=== PATIENT | male | born 1935 | race Caucasian/White ===

== ENCOUNTER → 2020-04-26 | Outpatient (CLI) | payer MEDICARE, OTHER | END | disposition home or self-care (01) | LOC: LAB 12:24 → LAB SHORT 12:24 | PROVIDERS: Family Medicine | DX: Z12.5 Encounter for screening for malignant neoplasm of prostate (principal) | CPT/HCPCS: G0103 ==

== ENCOUNTER → 2021-05-17 | Outpatient (CLI) | payer MEDICARE, OTHER | END | disposition home or self-care (01) | LOC: LAB SHORT 12:47 → LAB 12:47 | DX: D18.01 Hemangioma of skin and subcutaneous tissue (principal) | CPT/HCPCS: 88305 ==

== ENCOUNTER 2023-04-30 08:57 | Emergency (ER) | payer MEDICARE, OTHER ==
[~2023-04-30] VITALS: Ht 175.3 cm; Wt 102.1 kg
[2023-04-30] MEDS ORDERED: Flomax0.4 MG PO (09:34)
[2023-04-30] MEDS ORDERED: FURO40 PO (09:34)
[2023-04-30] MEDS ORDERED: Prinivil10 MG PO (09:34)
[2023-04-30 09:35] LABS: BASOPHILS ABSOLUTE AUTO 0.06 K/mm3 (0.00-0.23); BASOPHILS PERCENT AUTO 1 % (0-2); EOSINOPHILS ABSOLUTE AUTO 0.03 K/mm3 (0.00-0.68); EOSINOPHILS PERCENT AUTO 0 % (0-6); Hematocrit 38.8 % (37.0-53.0); Hemoglobin 12.6 g/dL (13.5-17.5); IMMATURE GRAN ABSOLUTE AUTO 0.02 K/mm3 (0.00-0.10); IMMATURE GRAN PERCENT AUTO 0 % (0-1); LYMPHOCYTES ABSOLUTE AUTO 1.04 K/mm3 (0.84-5.20); LYMPHOCYTES PERCENT AUTO 14 % (21-46); MONOCYTES ABSOLUTE AUTO 0.47 K/mm3 (0.16-1.47); MONOCYTES PERCENT AUTO 6 % (4-13); Mean Corpuscular HGB 31.4 pg (26.0-34.0); Mean Corpuscular HGB Conc 32.5 g/dL (31.5-36.5); Mean Corpuscular Volume 97 fL (80-100); Mean Platelet Volume 10.5 fL (9.1-12.4); NEUTROPHILS ABSOLUTE AUTO 5.68 K/mm3 (1.96-9.15); NEUTROPHILS PERCENT AUTO 78 % (41-73); Platelet Count 195 K/mm3 (150-400); RDW Coefficient Variation 14.9 % (11.7-14.2); RDW Standard Deviation 53.2 fL (35.1-46.3); Red Blood Cell Count 4.01 M/mm3 (4.30-5.90)
[2023-04-30 10:05] LABS: D-Dimer, Quantitative 0.28 mg/L FEU (0.00-0.52); International Normalized Ratio 1.58; Prothrombin Time Results 16.2 Sec (9.7-11.5)
[2023-04-30 10:07] LABS: Albumin, Blood 3.5 g/dL (3.4-5.0); Albumin/Globulin Ratio 0.9 (0.8-1.8); Bilirubin, Total 2.6 mg/dL (0.1-1.0); Bun/Creatinine Ratio 30.2 (12.0-20.0); Calcium, Blood 9.1 mg/dL (8.5-10.1); Creatinine, Blood 1.72 mg/dL (0.60-1.20); Globulin, Blood 3.8 g/dL (2.2-4.0); Magnesium, Blood 2.4 mg/dL (1.6-2.4); Potassium, Blood 4.5 mmol/L (3.5-5.5); Total Protein, Blood 7.3 g/dL (6.4-8.2)
[2023-04-30 10:35] LABS: Influenza A, PCR NEGATIVE (NEGATIVE); Influenza B, PCR NEGATIVE (NEGATIVE); Resp Syncytial Virus, PCR NEGATIVE (NEGATIVE); SARS-Cov-2 (COVID-19) PCR, MMC NEGATIVE (NEGATIVE)
[2023-04-30 13:00] VITALS: BP 128/57
== END 2023-04-30 13:35 | disposition home or self-care (01) ==
LOC: ER 08:57
PROVIDERS: Emergency Medicine
DX: I50.9 Heart failure, unspecified (principal); Z20.822 Contact with and (suspected) exposure to COVID-19
CPT/HCPCS: 0241U; 71046; 80053; 83735; 84100; 84484; 85025; 85379; 85610; 85730; 93005; 93010; 93971; 96374; 99284-25; J1940

== ENCOUNTER 2023-05-18 18:51 | Inpatient (IN) | payer MEDICARE, OTHER ==
[~2023-05-18] VITALS: Ht 175.3 cm; Wt 106.3 kg
[~2023-05-18 18:51] MED LIST: FURO40 PO; Flomax0.4 MG PO; Prinivil10 MG PO
[2023-05-18 19:27] LABS: BASOPHILS ABSOLUTE AUTO 0.01 K/mm3 (0.00-0.23); BASOPHILS PERCENT AUTO 0 % (0-2); EOSINOPHILS PERCENT AUTO 0 % (0-6); Hemoglobin 14.8 g/dL (13.5-17.5); IMMATURE GRAN ABSOLUTE AUTO 0.08 K/mm3 (0.00-0.10); IMMATURE GRAN PERCENT AUTO 1 % (0-1); LYMPHOCYTES ABSOLUTE AUTO 0.44 K/mm3 (0.84-5.20); LYMPHOCYTES PERCENT AUTO 3 % (21-46); MONOCYTES ABSOLUTE AUTO 0.79 K/mm3 (0.16-1.47); MONOCYTES PERCENT AUTO 6 % (4-13); Mean Corpuscular HGB 32.4 pg (26.0-34.0); Mean Corpuscular HGB Conc 32.2 g/dL (31.5-36.5); Mean Corpuscular Volume 101 fL (80-100); Mean Platelet Volume 10.5 fL (9.1-12.4); NEUTROPHILS ABSOLUTE AUTO 13.07 K/mm3 (1.96-9.15); NEUTROPHILS PERCENT AUTO 91 % (41-73); Platelet Count 178 K/mm3 (150-400); RDW Coefficient Variation 19.1 % (11.7-14.2); RDW Standard Deviation 69.1 fL (35.1-46.3); Red Blood Cell Count 4.57 M/mm3 (4.30-5.90); White Blood Cell Count 14.39 K/mm3 (4.00-11.30)
[2023-05-18 19:45] LABS: Albumin, Blood 3.1 g/dL (3.4-5.0); Albumin/Globulin Ratio 0.9 (0.8-1.8); Bilirubin, Total 2.2 mg/dL (0.1-1.0); Bun/Creatinine Ratio 24.9 (12.0-20.0); Calcium, Blood 8.5 mg/dL (8.5-10.1); Creatinine, Blood 2.21 mg/dL (0.60-1.20); Globulin, Blood 3.6 g/dL (2.2-4.0); Potassium, Blood 5.8 mmol/L (3.5-5.5); Total Protein, Blood 6.7 g/dL (6.4-8.2)
[2023-05-19 01:48] VITALS: BP 116/49
[2023-05-19] MEDS ORDERED: POTCHL20ER PO (02:44)
[2023-05-19] MEDS ORDERED: XARELTO15 MG PO (02:45)
[2023-05-19 04:03] VITALS: BP 113/56
[2023-05-19] MEDS ORDERED: Prinivil10 MG PO (04:53)
[2023-05-19] MEDS ORDERED: HYDROCHLOROTH12.5 MG PO (04:53)
[2023-05-19 06:17] LABS: BASOPHILS ABSOLUTE AUTO 0.01 K/mm3 (0.00-0.23); BASOPHILS PERCENT AUTO 0 % (0-2); EOSINOPHILS PERCENT AUTO 0 % (0-6); Hematocrit 44.1 % (37.0-53.0); Hemoglobin 14.2 g/dL (13.5-17.5); IMMATURE GRAN ABSOLUTE AUTO 0.07 K/mm3 (0.00-0.10); IMMATURE GRAN PERCENT AUTO 1 % (0-1); LYMPHOCYTES ABSOLUTE AUTO 0.61 K/mm3 (0.84-5.20); LYMPHOCYTES PERCENT AUTO 5 % (21-46); MONOCYTES ABSOLUTE AUTO 0.68 K/mm3 (0.16-1.47); MONOCYTES PERCENT AUTO 5 % (4-13); Mean Corpuscular HGB 32.3 pg (26.0-34.0); Mean Corpuscular HGB Conc 32.2 g/dL (31.5-36.5); Mean Corpuscular Volume 100 fL (80-100); Mean Platelet Volume 10.3 fL (9.1-12.4); NEUTROPHILS ABSOLUTE AUTO 11.24 K/mm3 (1.96-9.15); NEUTROPHILS PERCENT AUTO 89 % (41-73); Platelet Count 164 K/mm3 (150-400); RDW Coefficient Variation 19.1 % (11.7-14.2); RDW Standard Deviation 69.2 fL (35.1-46.3); White Blood Cell Count 12.61 K/mm3 (4.00-11.30)
--- NOTE | 2023-05-19 06:44 | NUR ---
SHIFT SUMMARY PT ADMITTED TO UNIT. EXCORIATION NOTED ON BUTTOCKS, CREAM APPLIED, BLE BLISTERS D/T WEEPING EDEMA, NO WEEPING NOTICED, ADRYAN PLACED UNDER PTS LEGS INCASE WEEPING OCCURS. PT HAD NO ORDERS UPON ARRIVAL. CALLED DR. MONK ANSWERING SERVICE TO REQUEST ORDERS. ORDERS RECENTLY PLACED, AWAITING A TELE MONITOR TO PLACE ON PT. PT C/O ONE EPISODE FEELING SOB AND CHEST PRESSURE, OXYGEN AND ALL VITALS STABLE, SAT AND TALKED WITH PATIENT A DISTRACTION AND SOB AND CHEST PRESSURE ALLEVIATED. PT DOES AGREE THAT THIS MAY JUST BE ALL ANXIETY RELATED HE FEELS BETTER AFTER TALKING. DR. MONK NOTIFIED OF THIS, NO NEW ORDERS. FIRE SAFETY REVIEWED, NO IGNITION SOURCES.
[2023-05-19 06:55] LABS: Albumin, Blood 2.8 g/dL (3.4-5.0); Albumin/Globulin Ratio 0.8 (0.8-1.8); Bilirubin, Total 2.2 mg/dL (0.1-1.0); Bun/Creatinine Ratio 26.8 (12.0-20.0); Calcium, Blood 8.4 mg/dL (8.5-10.1); Creatinine, Blood 2.09 mg/dL (0.60-1.20); Globulin, Blood 3.4 g/dL (2.2-4.0); Potassium, Blood 5.8 mmol/L (3.5-5.5); Total Protein, Blood 6.2 g/dL (6.4-8.2)
[2023-05-19 07:10] VITALS: BP 120/56
[2023-05-19 15:24] VITALS: BP 97/79
--- NOTE | 2023-05-19 17:50 | NUR ---
SHIFT SUMMARY- PTIS A/O, PLESANT AND COOPERATIVE. HE IS EATING AND DRINKING WELL. FAMILY WAS AT BEDSIDE THIS MORNING AND THIS EVENING. PTS DAUGHTER BECAME UPSET THIS MORNING THAT PT HAD NOT RECIEVED A BEDBATH YET. PT EXPLAINED TO THE DAUGHTER THAT HE WAS GOING TO HAVE ONE AFTER LUNCH HE DISCUSSED WITH THE PHARMACIST IN CHARGE. THE PHARMACIST IN CHARGE ENTERED THE ROOM TO DISCUSS THIS WITH THE DAUGHTER AND SHE ELEVATED HER VOICE AND TOLD THE PHARMACIST IN CHARGE TO LEAVE THE ROOM. AFTER THIS THE PHARMACIST IN CHARGE WAS SITTING AT HER DESK AND THE PTS DAUGHER CAME OUT STOOD OVER THE PHARMACIST IN CHARGE AND POINTED A FINGER AT HER AND BEGAN TO SHOUT. I ASKED HER TO RETURN TO THE ROOM TO DISCUSS THIS. I EXPLAINED THAT I KNOW SHE IS WORRIED ABOUT HER FATHER BUT IT IS UNACCEPTABLE TO TALK TO STAFF IN THIS WAY. PT REQUESTED THAT HIS DAUGHTER LEAVE AT THIS TIME. LATER I SPOKE TO DR. MONK AND SHE SAID SHE WOULD REINFORCE THIS WHEN SHE SPOKE TO THE DAUGHTER ON THE PHONE. THIS AFTERNOON PT REPORTED HAVING INCREASED SHORTNESS OF BREATH. HE REPORTED THAT IT WAS THE SAME FEELING HE HAD BEFORE HE CAME TO THE HOSPITAL, BUT THE EPISODE WAS LASTING LONGER. PT O2 SATS MAINTAINED IN THE HIGH 90'S, PLACED PT ON 2L FOR COMFORT. PREFORMED A BLADDER SCAN ON THE PT, DUE TO MINIMAL OUTPUT THIS AFTERNOON, WHICH SHOWED NO RETENTION >20ML. SPOKE TO DR MONK. SHE ORDERED ANOTHER DOSE OF IV LASIX. PT REPORTED RELIEF OF SYMPTOMS. PT RECIEVED A BEDBATH THIS SHIFT. HE REPORTED SORENESS IN HIS BOTTOM, MEPLEX REPLACED, EGGCRATE PLACED ON BED. HIS BED IS IN THE LOW POSITON AND CALL LIGHT IS WITIN REACH.
[2023-05-19 18:14] LABS: Bun/Creatinine Ratio 29.7 (12.0-20.0); Calcium, Blood 8.7 mg/dL (8.5-10.1); Creatinine, Blood 2.19 mg/dL (0.60-1.20)
[2023-05-19 19:39] VITALS: BP 114/56
[2023-05-19 21:52] LABS: Albumin, Blood 2.9 g/dL (3.4-5.0); Anion Gap 6 mmol/L (6-16); Blood Urea Nitrogen 66 mg/dL (8-24); Bun/Creatinine Ratio 29.7 (12.0-20.0); CO2, Blood 23 mmol/L (21-32); Calcium, Blood 8.6 mg/dL (8.5-10.1); Chloride, Blood 100 mmol/L (98-108); Creatinine, Blood 2.22 mg/dL (0.60-1.20); Glomerular Filtration Rate 28 (60-); Glucose, Blood 182 mg/dL (70-99); Phosphorus, Blood 4.6 mg/dL (2.5-4.9); Potassium, Blood 5.9 mmol/L (3.5-5.5); Sodium, Blood 129 mmol/L (136-145)
[2023-05-19 23:51] LABS: Bun/Creatinine Ratio 32.7 (12.0-20.0); Calcium, Blood 8.5 mg/dL (8.5-10.1); Creatinine, Blood 2.05 mg/dL (0.60-1.20); Potassium, Blood 6.3 mmol/L (3.5-5.5)
[2023-05-20 02:53] LABS: BASOPHILS ABSOLUTE AUTO 0.01 K/mm3 (0.00-0.23); BASOPHILS PERCENT AUTO 0 % (0-2); EOSINOPHILS ABSOLUTE AUTO 0.02 K/mm3 (0.00-0.68); EOSINOPHILS PERCENT AUTO 0 % (0-6); Hematocrit 41.4 % (37.0-53.0); Hemoglobin 13.5 g/dL (13.5-17.5); IMMATURE GRAN ABSOLUTE AUTO 0.05 K/mm3 (0.00-0.10); IMMATURE GRAN PERCENT AUTO 1 % (0-1); LYMPHOCYTES ABSOLUTE AUTO 0.46 K/mm3 (0.84-5.20); LYMPHOCYTES PERCENT AUTO 4 % (21-46); MONOCYTES ABSOLUTE AUTO 0.72 K/mm3 (0.16-1.47); MONOCYTES PERCENT AUTO 7 % (4-13); Mean Corpuscular HGB 32.3 pg (26.0-34.0); Mean Corpuscular HGB Conc 32.6 g/dL (31.5-36.5); Mean Corpuscular Volume 99 fL (80-100); Mean Platelet Volume 9.9 fL (9.1-12.4); NEUTROPHILS ABSOLUTE AUTO 9.62 K/mm3 (1.96-9.15); NEUTROPHILS PERCENT AUTO 88 % (41-73); Platelet Count 143 K/mm3 (150-400); RDW Coefficient Variation 18.9 % (11.7-14.2); RDW Standard Deviation 67.4 fL (35.1-46.3); Red Blood Cell Count 4.18 M/mm3 (4.30-5.90); White Blood Cell Count 10.88 K/mm3 (4.00-11.30)
[2023-05-20 03:12] LABS: Albumin, Blood 2.5 g/dL (3.4-5.0); Albumin/Globulin Ratio 0.8 (0.8-1.8); Bilirubin, Total 1.7 mg/dL (0.1-1.0); Bun/Creatinine Ratio 29.4 (12.0-20.0); Calcium, Blood 8.1 mg/dL (8.5-10.1); Creatinine, Blood 2.14 mg/dL (0.60-1.20); Magnesium, Blood 2.8 mg/dL (1.6-2.4); Phosphorus, Blood 4.4 mg/dL (2.5-4.9); Potassium, Blood 4.8 mmol/L (3.5-5.5); Total Protein, Blood 5.5 g/dL (6.4-8.2)
[2023-05-20 04:27] VITALS: BP 109/62
--- NOTE | 2023-05-20 04:59 | NUR ---
SHIFT SUMMARY ADMIT FOR CHF EXACERBATION. PT HAS 3+ PITTING EDEMA IN BLE. PT ON BEDREST. CONSISTENT IN AFIB THROUGHOUT NIGHT AT 81BPM. PT EXPERIENCED PERIODS OF SHORTNESS OF BREATH PERIODICALLY THROUGH NIGHT. 3L NC O2 PROVIDED. REMINDED PT TO BREATH THROUGH NOSE. AWAITING TRANSFER TO [place]. EKG PERFORMED AT START OF SHIFT. FINDINGS WERE UNREMARKABLE. K+ @1747:6.0 (CRITICAL CALLED), GLU:154; K+ @2101:5.9, GLU:182 (ANDREW ORDERED HEMO A1C IN AM, ACHS LSS W/REG INSUL SUBQ, LOKELMA, STAT 2MG BUMEX, THEN BLADDER SCAN [444, THEN 357 AFTER VOIDING]); K+ @2304:6.3 (CRITICAL CALLED), GLU:145 (ANDREW ORDERED 2MG BUMEX, 1AMP D50, 1AMP BICARB, 10 UNITS IV INSULIN, 1 LITRE/DAY FLUID RESTRICTION); K+ @0243:4.8 (ANDREW CALLED), GLU:62 (APPLEJUICE GIVEN). BLADDER SCANNED @0445:228. IV HAD TO BE REPLACED DUE TO LEAKING.
[2023-05-20 07:16] VITALS: BP 115/54
[2023-05-20 15:46] VITALS: BP 124/54
--- NOTE | 2023-05-20 18:20 | NUR ---
SUMMARY- PT A/O X4. STARTED PT/OT TODAY AND GOT UP TO CHAIR WITH GAIT BELT AND WALKER. RN GOT PT BACK TO BED SBA WITH ADQ STRENGTH, GEN WEAKNESS- TOLAEATING FOOD AND FLUID. ON DIURETICS BUT VOIDING MIN AMOUNTS (SEE I/O)- CONTINUES TO HAVE SEVERE EDEMA BLE (WEAPING)- LUNGS WITH CRACKLES IN BASES. ROOM AIR. TELE AFIB 80'S. DOING 24HR UUN STARTED 829- WILL REPORT TO NOC RN
[2023-05-20 20:29] VITALS: BP 103/53
[2023-05-21 01:30] VITALS: BP 111/59
--- NOTE | 2023-05-21 03:55 | NUR ---
DSHIFT SUMMARY ADMIT FOR CHF EXACERBATION. 3+ PITTING EDEMA STILL PRESENT IN BLE. WEAPING FLUID FROM BOTH, BUT WORSE ON LEFT. APPLIED CHUCKS TO BLE, THEN APPLIED SCD'S TO AID IN DIURESING. PT ABLE TO VOID WELL WITH URINAL. UNDER 24HOUR URINE COLLECTION. BEGAN ANEW AT 2053 DUE TO ACCIDENTAL WASTING OF 400ML OF VOIDED URINE. PT HAD MOMENT OF SHORTNESS OF BREATH DURING EPISODE OF ANXIETY. EDUCATED PT ON PROPER BREATHING TECHNIQUES. APPLIED 3LPM NC O2. CHECKED VITALS AT 0130 BP 111/59 MAP (75). HR 89BPM. TEMP 97.2F. O2 100%. ADJUSTED PT IN BED, SAT UP, AND PT ABLE TO RELAX AND BREATH WELL. SLIGHT CRACKLES IN LUNG BASES. HEART MURMER HEARD. PT AWAITING ATRIAL VALVE REPLACEMENT ON 06/01.
[2023-05-21 05:03] LABS: Hematocrit 41.6 % (37.0-53.0); Hemoglobin 13.6 g/dL (13.5-17.5); Mean Corpuscular HGB 32.1 pg (26.0-34.0); Mean Corpuscular HGB Conc 32.7 g/dL (31.5-36.5); Mean Corpuscular Volume 98 fL (80-100); Mean Platelet Volume 10.6 fL (9.1-12.4); Platelet Count 159 K/mm3 (150-400); RDW Coefficient Variation 18.6 % (11.7-14.2); RDW Standard Deviation 65.9 fL (35.1-46.3); Red Blood Cell Count 4.24 M/mm3 (4.30-5.90); White Blood Cell Count 9.85 K/mm3 (4.00-11.30)
[2023-05-21 05:17] VITALS: BP 99/54
[2023-05-21 05:33] LABS: BASOPHILS PERCENT MAN 0 % (0-2); EOSINOPHILS PERCENT MAN 0 % (0-6); LYMPHOCYTES ABSOLUTE MAN 0.68 K/mm3 (0.84-5.20); LYMPHOCYTES PERCENT MAN 7 % (21-46); MONOCYTES ABSOLUTE MAN 0.39 K/mm3 (0.16-1.47); MONOCYTES PERCENT MAN 4 % (4-13); NEUTROPHILS ABSOLUTE MAN 8.76 K/mm3 (1.96-9.15); SEG NEUTROPHILS PERCENT MAN 89 % (41-73); TOTAL CELLS COUNTED 100
[2023-05-21 05:34] LABS: Albumin, Blood 2.6 g/dL (3.4-5.0); Albumin/Globulin Ratio 0.8 (0.8-1.8); Bilirubin, Total 1.5 mg/dL (0.1-1.0); Bun/Creatinine Ratio 33.7 (12.0-20.0); Calcium, Blood 8.1 mg/dL (8.5-10.1); Creatinine, Blood 1.96 mg/dL (0.60-1.20); Globulin, Blood 3.1 g/dL (2.2-4.0); Magnesium, Blood 2.4 mg/dL (1.6-2.4); Phosphorus, Blood 4.1 mg/dL (2.5-4.9); Potassium, Blood 3.7 mmol/L (3.5-5.5); Total Protein, Blood 5.7 g/dL (6.4-8.2); Uric Acid, Blood 14.8 mg/dL (3.5-7.2)
[2023-05-21 07:19] VITALS: BP 127/52
[2023-05-21 15:42] VITALS: BP 111/56
--- NOTE | 2023-05-21 18:51 | NUR ---
SHIFT SUMMARY: PT A/O X 4, ONE ASSIST WITH FWW, GB. PLEASANT AND COOPERATIVE. PT TOLERATING INCREASED BUMEX. TELE REPORTED PT HAD ONE 9 BEAT RUN OF V-TACH TODAY WHEN PT WAS TRANSFERRING FROM CHAIR TO BED. PT ASYMPTOMATIC AT TIME OF EVENT. PT CONTINUED TO HAVE EDEMA TO BLE WITH SOME WEEPING AT ANKLES. PT REPORTED TO FEEL STRONGER THAN YESTERDAY. CONTINUES TO URINATE AND 24 HOUR URINE COLLECTION TO BE COMPLETED TONIGHT AT 2053. PT DID REPORT ANXIETY THIS EVENING WHICH HE STATED "MY DAUGHTER'S VISIT IS JUST GOT ME SO UPSET AND I HAVE TRIED FOR AN HOUR TO CALM DOWN AND I CAN'T." PT REPORTED "I CAN'T CATCH MY BREATH. DR. MONK NOTIFIED OF PT REPORT OF ANXIETY AND SHE GAVE ORDER FOR LORAZEPAM 0.5 MG-1 MG ONE TIME. GIVE 0.5 MG NOW AND IF NEEDED GIVE 2ND DOSE. PT IS NOW RESTING IN HIS ROOM, EYES SHUT RR E/U, APPEARS TO BE SLEEPING AND IN NO APPARENT DISTRESS. DR. MONK AWARE OF EPISODE OF V-TACH.
[2023-05-21 21:25] VITALS: BP 115/56
[2023-05-21 23:32] LABS: Protein, Urine Quantitative 11.7 mg/dL (0.0-11.9)
[2023-05-22 05:15] VITALS: BP 115/56
[2023-05-22 06:45] LABS: BASOPHILS PERCENT AUTO 0 % (0-2); EOSINOPHILS ABSOLUTE AUTO 0.05 K/mm3 (0.00-0.68); EOSINOPHILS PERCENT AUTO 1 % (0-6); Hematocrit 42.3 % (37.0-53.0); Hemoglobin 13.8 g/dL (13.5-17.5); IMMATURE GRAN ABSOLUTE AUTO 0.03 K/mm3 (0.00-0.10); IMMATURE GRAN PERCENT AUTO 0 % (0-1); LYMPHOCYTES ABSOLUTE AUTO 0.64 K/mm3 (0.84-5.20); LYMPHOCYTES PERCENT AUTO 7 % (21-46); MONOCYTES ABSOLUTE AUTO 0.52 K/mm3 (0.16-1.47); MONOCYTES PERCENT AUTO 6 % (4-13); Mean Corpuscular HGB 32.4 pg (26.0-34.0); Mean Corpuscular HGB Conc 32.6 g/dL (31.5-36.5); Mean Corpuscular Volume 99 fL (80-100); Mean Platelet Volume 10.5 fL (9.1-12.4); NEUTROPHILS ABSOLUTE AUTO 7.52 K/mm3 (1.96-9.15); NEUTROPHILS PERCENT AUTO 86 % (41-73); Platelet Count 135 K/mm3 (150-400); RDW Coefficient Variation 18.8 % (11.7-14.2); RDW Standard Deviation 67.5 fL (35.1-46.3); Red Blood Cell Count 4.26 M/mm3 (4.30-5.90); White Blood Cell Count 8.76 K/mm3 (4.00-11.30)
[2023-05-22 07:01] LABS: Albumin, Blood 2.5 g/dL (3.4-5.0); Albumin/Globulin Ratio 0.8 (0.8-1.8); Bilirubin, Total 1.5 mg/dL (0.1-1.0); Bun/Creatinine Ratio 36.2 (12.0-20.0); Calcium, Blood 8.3 mg/dL (8.5-10.1); Creatinine, Blood 1.74 mg/dL (0.60-1.20); Globulin, Blood 3.2 g/dL (2.2-4.0); Magnesium, Blood 2.3 mg/dL (1.6-2.4); Phosphorus, Blood 4.1 mg/dL (2.5-4.9); Potassium, Blood 3.4 mmol/L (3.5-5.5); Total Protein, Blood 5.7 g/dL (6.4-8.2)
[2023-05-22 07:32] VITALS: BP 122/57
--- NOTE | 2023-05-22 11:50 | NUR ---
PT INCONTINENT OF URINE AT THIS TIME. PLACED CONDOM CATH WITH PT VERBAL CONSENT FOR STRICT I&O'S ORDER. PLACED PER POLICY AND PT TOLERATED WELL.
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
[2023-05-22 16:23] VITALS: BP 106/42
--- NOTE | 2023-05-22 17:10 | NUR ---
SHIFT SUMMARY: PT A/O X 4, ONE ASSIST TO BATHROOM. PT WAS LETHARGIC THIS AM AND DIFFICULT TO KEEP AWAKE. AROUND 11 AM PT BECAME MORE ALERT AND ABLE TO KEEP EYES OPEN AND CARRY ON A CONVERSATION. PT HAS BEEN PLEASANT AND COOPERATIVE WITH CARE. PT WAS INCONTINENT THROUGH THE NIGHT AND THIS MORNING. DR. MORALES REQUESTED STRICT I&O'S. PLACED A CONDOM CATHETER BUT AT SOME POINT CATHETER WAS PULLED OFF. PT REPORTED HE DID NOT KNOW HE PULLED IT OFF THINKING IT WAS HIS CALL LIGHT CORD HE WAS PULLING. UNABLE TO MEASURE URINE DUE TO THIS HE HAD SOAKED HIS ATTENDS. REPLACED CONDOM CATHETER AND EDUCATED PT ON IMPORTANCE OF MAINTAINING CONDOM CATHETER. PT VU. CALL LIGHT OVER PT LAP NOW. PT SWELLING TO LEGS APPEAR IMPROVED. LESS WEEPING TODAY THAN YESTERDAY. ONLY A FEW WET SMALL SPOTS ON CHUX THIS AFTERNOON WHEN THEY WERE CHANGED. PT KEPT LEGS ELEVATED THROUGHOUT THE DAY. PT REFUSED OT DUE TO FEELING TO WEAK TO WORK WITH THEM. PT HAD VISIT WITH SPIRITUAL CARE TODAY. PT DID NOT TALK EXCESSIVELY ABOUT HIS DAUGHTER'S VISIT YESTERDAY WHICH HE WAS UPSET BY LAST NIGHT. PT APPEARED TO BE IN GOOD SPIRITS WHEN HE WAS AWAKE. EATING WELL WHEN AWAKE AND COMPLIANT WITH FLUID RESTRICTION. RANDOM UA SENT TO LAB.
[2023-05-22 20:15] VITALS: BP 103/45
--- NOTE | 2023-05-22 22:50 | NUR ---
PATIENT HAVING INCREASED EPISODES OF V-TACH SINCE THIS NURSE ARRIVAL TELEMETRY HAS CALLED [address] ROSAS NOTIFIED AND WILL REVIEW THE CHART AND PLACE ORDERS IF NEEDED. PATIENT IS ASYMPTOMATIC WITH EPISODES.
[2023-05-23 00:15] VITALS: BP 100/66
[2023-05-23 03:25] VITALS: BP 93/49
--- NOTE | 2023-05-23 03:43 | NUR ---
PATIENT A/OX4, UP WITH ASSIST AND FWW. TURING Q2 HOURS IN BED, EXCORIATION TO BUTTOCKS, BARRIER CREAM APPLIED. A-FIB ON TELE WITH MULTIPLE RUNS OF V-TACH AT START OF SHIFT. DR. ROSAS NOTIFIED AND METOPROLOL 12.5 MG GIVEN PO WHICH SEEMS TO HAVE HELPED. 3+ EDEMA TO BLE, PATIENT IS ON A 1L FLUID RESTRICTION AND IS COMPLIANT WITH THIS. DRESSINGS TO BLE REMAIN C/D/I, SCD'S IN PLACE AND LEGS ELEVATED. PATIENT ANXIOUS AT TIMES, FEELS BETTER AND LESS SHORT OF BREATH WITH O2 USE. 2LO2 IN PLACE FOR COMFORT. CONDOM CATH IN PLACE FOR STRICT I/O'S. PATIENT IS COOPERATIVE WITH CARE AND CALLS APPROPRIATELY FOR ASSISTANCE.
[2023-05-23 05:12] LABS: Hematocrit 40.8 % (37.0-53.0); Hemoglobin 13.3 g/dL (13.5-17.5)
[2023-05-23 06:26] LABS: Albumin, Blood 2.7 g/dL (3.4-5.0); Anion Gap 9 mmol/L (6-16); Blood Urea Nitrogen 63 mg/dL (8-24); Bun/Creatinine Ratio 34.8 (12.0-20.0); CO2, Blood 25 mmol/L (21-32); Calcium, Blood 8.2 mg/dL (8.5-10.1); Chloride, Blood 104 mmol/L (98-108); Creatinine, Blood 1.81 mg/dL (0.60-1.20); Glomerular Filtration Rate 36 (60-); Glucose, Blood 163 mg/dL (70-99); Magnesium, Blood 2.2 mg/dL (1.6-2.4); Potassium, Blood 3.6 mmol/L (3.5-5.5); Sodium, Blood 138 mmol/L (136-145)
[2023-05-23 07:57] VITALS: BP 104/44
--- NOTE | 2023-05-23 14:12 | NUR ---
Pt with 200 ml albert urine per condom cath, brief dry. Telephone orders from Dr. Castellanos for Lasix 80 mg IV BID. DC po Lasix.
[2023-05-23 15:21] VITALS: BP 91/43
--- NOTE | 2023-05-23 15:54 | NUR ---
SHIFT SUMMARY Pt remains awake and alert x4 this shift. Up in chair for meals. OOB with 1 person ast and fww. To bathroom today for large BM. Generalized edema +2-3/ Minimal weeping from BLE. SCDs in place while in bed. Ext elevated. Unable to keep condom cath on as they fall off with activity. Pt compliant with fluid restrictions. Pain and safety maintained. Will continue to monitor this shift.
--- NOTE | 2023-05-23 18:22 | NUR ---
Call from tele stating pt with 5 beat run of vtach. Pt asymptomatic. Dr. Ayala made aware. Will continue to monitor.
[2023-05-23 20:57] VITALS: BP 92/49
--- NOTE | 2023-05-23 23:08 | NUR ---
NURSE NOTE BP LOW NORMAL, OTHERWISE VSS. SOME C/O SOB, REPOSITIONED A FEW TIMES AND RT DID BEDSIDE EVAL. VOICED SATS WNL (WAS 100% WHEN NURSE CHECKED THEM). NURSE ASSISTED PT INTO BEDSIDE LOUNGE CHAIR WITH O2 ON 2-3L/MIN PER NC. AFTERWARDS PT VOICED FELT BETTER. CALL LIGHT IN REACH. WILL CONT TO MONITOR
--- NOTE | 2023-05-24 03:33 | NUR ---
DRILL INSTRUCTOR SUMMARY BP LOW NORMAL, OTHERWISE VSS. LOPRESSOR WAS HELD DUE TO SBP BELOW 100. O2 PER NC. HOB ELEVATED. INTERMITTENT VOICED SOB, RT ASSESSED PT, SATS 90'S TO 100%. WAS ASSISTED TO BEDSIDE LOUNGE CHAIR FOR EASIER BREATHING, IT HELPED FOR A WHILE, THEN REQUESTED TO GO BACK TO BED. INCONT OF URINE AND CHANGED. HAS BEEN RESTING QUIETLY WITH OCCASIONAL INTERRUPTION. MED TELE A FIB. FLUID RESTRICTION CONTINUES. CALL LIGHT IN REACH. WILL CONTINUE TO MONITOR.
[2023-05-24 03:37] VITALS: BP 93/40
[2023-05-24 04:59] LABS: Hematocrit 43.2 % (37.0-53.0); Hemoglobin 14.1 g/dL (13.5-17.5)
[2023-05-24 05:40] LABS: Albumin, Blood 2.9 g/dL (3.4-5.0); Anion Gap 8 mmol/L (6-16); Blood Urea Nitrogen 77 mg/dL (8-24); Bun/Creatinine Ratio 31.6 (12.0-20.0); CO2, Blood 25 mmol/L (21-32); Calcium, Blood 8.4 mg/dL (8.5-10.1); Chloride, Blood 102 mmol/L (98-108); Creatinine, Blood 2.44 mg/dL (0.60-1.20); Glomerular Filtration Rate 25 (60-); Glucose, Blood 159 mg/dL (70-99); Magnesium, Blood 2.5 mg/dL (1.6-2.4); Phosphorus, Blood 5.1 mg/dL (2.5-4.9); Sodium, Blood 135 mmol/L (136-145)
[2023-05-24 07:29] VITALS: BP 104/42
--- NOTE | 2023-05-24 15:55 | NUR ---
SHIFT SUMMARY Pt remains A&Ox3 this shift. Denies pain. VSS. Exertional dyspnea, wearing oxygen more frequently now. Up in chair for meals today. Short naps during this shift. BLE elevated. Will continue to monitor this shift.
[2023-05-24 16:00] VITALS: BP 91/49
[2023-05-24 19:35] VITALS: BP 99/52
[2023-05-25] VITALS (92 sets, daily range): BP systolic 74–124; BP diastolic 13–84
--- NOTE | 2023-05-25 | NUR ---
NURSE NOTE AWKAE AT INTERVALS. INTERMITTENTLY CALLING OUT TO BE TURNED, ETC. VOICED DIFFICULTY TO BREATHE. REPOSITIONED, HOB ELEVATED AND O2 PLACED BACK ON PER NC. O2 SATS 98%. HR 72. REASURRANCE GIVEN. ANXIETY SEEMED TO DECREASE. CALL LIGHT IN REACH. WILL CONTINUE TO MONITOR
--- NOTE | 2023-05-25 03:33 | NUR ---
SEWER SYSTEM SUPERVISOR SUMMARY VSS. BP WAS LOW AND BP MED HELD AT HS, HAS TRENDED UP TO LOW NORMAL - SEE DOC FLOW SHEETS. TOLERATING LITTLE DIET - REQUESTED AND RECEIVED ICE CREAM, REFUSED OTHER SUGGESTIONS. ALERT TO QUESTIONS ASKED. REPOSITIONED INTERMITTENTLY WITH HOB ELEVATED. O2 PER NC. A FEW VOICED IRRITATIONS RE WANTING TO GET OUT OF BED TO CHAIR, THEN WANTING TO GET BACK INTO BED. RECEIVED HALDOL X 1 FOR AGITATION. BEDREST ENCOURAGED. CALL LIGHT IN REACH. SCDS IN USE. CALL LIGHT IN REACH.
[2023-05-25 04:20] LABS: BASOPHILS ABSOLUTE AUTO 0.01 K/mm3 (0.00-0.23); BASOPHILS PERCENT AUTO 0 % (0-2); EOSINOPHILS PERCENT AUTO 0 % (0-6); Hematocrit 46.1 % (37.0-53.0); Hemoglobin 14.5 g/dL (13.5-17.5); IMMATURE GRAN ABSOLUTE AUTO 0.11 K/mm3 (0.00-0.10); IMMATURE GRAN PERCENT AUTO 1 % (0-1); LYMPHOCYTES ABSOLUTE AUTO 1.19 K/mm3 (0.84-5.20); LYMPHOCYTES PERCENT AUTO 12 % (21-46); MONOCYTES ABSOLUTE AUTO 0.67 K/mm3 (0.16-1.47); MONOCYTES PERCENT AUTO 7 % (4-13); Mean Corpuscular HGB Conc 31.5 g/dL (31.5-36.5); Mean Corpuscular Volume 102 fL (80-100); Mean Platelet Volume 10.8 fL (9.1-12.4); NEUTROPHILS ABSOLUTE AUTO 8.19 K/mm3 (1.96-9.15); NEUTROPHILS PERCENT AUTO 81 % (41-73); Platelet Count 118 K/mm3 (150-400); RDW Coefficient Variation 18.1 % (11.7-14.2); RDW Standard Deviation 67.8 fL (35.1-46.3); Red Blood Cell Count 4.53 M/mm3 (4.30-5.90); White Blood Cell Count 10.17 K/mm3 (4.00-11.30)
--- NOTE | 2023-05-25 04:23 | NUR ---
NURSE NOTE - CODE WHILE IN LOUNGE CHAIR AT BEDSIDE, CALL LIGHT IN REACH. VOICED WANTING TO GET BACK TO BED. REFUSED WARM BLANKETS. CALLED WHILE STAFF WITH OTHER PTS, DEMANDED TO CALL DAUGHTER. STAFF USED PT PHONE TO CALL DAUGHTER. PT MACHINE MAINTENANCE TECHNICIAN TO DAUGHTER, WHEN NURSE GOT INTO ROOM. VOICED ANGER THAT STAFF HAD TAKEN SO LONG. NURSE VOICED THAT WE WOULD ASSIST HIM BACK TO BED. UP WITH 2 PERSON ASSIST WITH WALKER TO BEDSIDE. SAT ON BED, NURSE ASSISTED LEGS UP INTO BED AND PT LAYED BACK, THEN HE WAS SLID UP TO THE TOP OF BED WITH XIE PAD, BECAME NON RESPONSIVE. TELE MONITOR DROPPED TO 28 AND RAPID RESPONSE CALLED, THEN CODE CALLED. PULSE AND RESEPS RETURNED WITH CODE STAFF/MDS AT BEDSIDE. PT TRANSFERRED TO ICU PER MD ORDERS.
[2023-05-25 04:34] LABS: Albumin, Blood 2.6 g/dL (3.4-5.0); Anion Gap 11 mmol/L (6-16); Blood Urea Nitrogen 81 mg/dL (8-24); Bun/Creatinine Ratio 28.7 (12.0-20.0); CO2, Blood 22 mmol/L (21-32); Calcium, Blood 7.5 mg/dL (8.5-10.1); Chloride, Blood 105 mmol/L (98-108); Creatinine, Blood 2.82 mg/dL (0.60-1.20); Glomerular Filtration Rate 21 (60-); Glucose, Blood 150 mg/dL (70-99); Magnesium, Blood 2.4 mg/dL (1.6-2.4); Potassium, Blood 4.5 mmol/L (3.5-5.5); Sodium, Blood 138 mmol/L (136-145)
--- NOTE | 2023-05-25 04:56 | NUR ---
REPORT GIVEN TO ICU NURSE.
[2023-05-25 05:13] LABS: International Normalized Ratio 2.23; Prothrombin Time Results 22.4 Sec (9.7-11.5)
--- NOTE | 2023-05-25 06:22 | NUR ---
SUMMARY: ASSUMED PT CARE AT APPROX 0515, PT WAS HAVING CENTRAL LINE PLACED AND ON VENTILATOR. PT ON NEOSYNEPHRINE AT 100MCG/MIN, DOPAMINE AT 10MCG/KG/MIN AND FLUID BOLUS #2 OF NS 500ML CONTINUING FROM CODE. PT IS NOT RECEIVING SEDATION AND IS UNRESTRAINED. LINE PLACEMENT CONFIRMED AND CXR SHOWS RIB RX & PNEUMO PER DR PRIETO. DISCUSSED FINDINGS W PT & DAUGHTER WHO DECLINE CHEST TUBE PLACEMENT- DONT WANT ANOTHER TUBE. DAUGHTER STATES PT WANTED DNR, BUT SEEMS LESS CONFIRMED TO THIS DECISION, CONFIRMING HE DID NOT WANT A TUBE, BUT TRYING TO TAKE IN THE CONTEXT OF WHAT THIS MEANS AT THIS TIME.
--- NOTE | 2023-05-25 07:02 | NUR ---
EXTUBATION: PT REQUESTS THAT PT BE EXTUBATED. DR PRIETO WAS NOTIFIED AND COMFORT ORDERS INITIATED.
--- NOTE | 2023-05-25 07:09 | NUR ---
PT AND DAUGHTER AT BEDSIDE. PT WAS MED W FENTANYL AND ATIVAN ALL GTTS HAVE BEEN DISCONTINUED. SUPPORT TO FAMILY AT BEDSIDE.
--- NOTE | 2023-05-25 07:45 | NUR ---
Summary. Assumed care of patient at approximately 0705, report received from nightshift RN. Pt on comfort care, family at bedside. Pt appears to be resting comfortably at time of report. Pt passed at 0742. Family requested Jennifer Bennett for mortuary services. All pt belongings left unit with family.
--- NOTE | 2023-05-25 09:14 | NUR ---
[facility] Family notified by this RN.
[2023-05-25 17:09] LABS: IMMUNOGLOBULIN A, QN, SERUM 405 mg/dL (61-437); IMMUNOGLOBULIN G, QN, SERUM 964 mg/dL (603-1613); IMMUNOGLOBULIN M, QN, SERUM 70 mg/dL (15-143)
[2023-05-28 06:12] LABS: ANTIMYELOPEROXIDASE (MPO) ABS <0.2 units (0.0-0.9); ANTIPROTEINASE 3 (PR-3) ABS <0.2 units (0.0-0.9); ATYPICAL PANCA <1:20 titer (Neg:<1:20); CYTOPLASMIC (C-ANCA) <1:20 titer (Neg:<1:20); PERINUCLEAR (P-ANCA) <1:20 titer (Neg:<1:20)
[2023-05-28 15:09] LABS: M-SPIKE, % Not Observed % (Not Observed); PROTEIN,TOTAL,URINE 6.6 mg/dL (Not Estab.)
== END 2023-05-25 07:42 | DRG 306 ==
LOC: ER 18:51 → MEDS 18:52 → ICUE 05-25 04:15
PROVIDERS: Emergency Medicine; Internal Medicine; Internal Medicine Nephrology; ADMIT Family Medicine
PROC: 5A12012 Performance of Cardiac Output, Single, Manual (ICD-10-PCS; principal; 2023-05-25)
PROC: 3E033XZ Introduction of Vasopressor into Peripheral Vein, Percutaneous Approach (ICD-10-PCS; 2023-05-25)
PROC: 0DH67UZ Insertion of Feeding Device into Stomach, Via Natural or Artificial Opening (ICD-10-PCS; 2023-05-25)
PROC: 02HV33Z Insertion of Infusion Device into Superior Vena Cava, Percutaneous Approach (ICD-10-PCS; 2023-05-25)
DX: I35.0 Nonrheumatic aortic (valve) stenosis (principal); I50.33 Acute on chronic diastolic (congestive) heart failure; I48.20 Chronic atrial fibrillation, unspecified; I13.0 Hypertensive heart and chronic kidney disease with heart failure and stage 1 through stage 4 chronic kidney disease, or unspecified chronic kidney disease; E87.1 Hypo-osmolality and hyponatremia; E87.20 Acidosis, unspecified; N17.9 Acute kidney failure, unspecified; I48.21 Permanent atrial fibrillation; I47.20 Ventricular tachycardia, unspecified; J93.9 Pneumothorax, unspecified; E87.5 Hyperkalemia; Z79.811 Long term (current) use of aromatase inhibitors; Z79.01 Long term (current) use of anticoagulants; D63.1 Anemia in chronic kidney disease; N40.1 Benign prostatic hyperplasia with lower urinary tract symptoms; N18.30 Chronic kidney disease, stage 3 unspecified; R33.8 Other retention of urine; E87.6 Hypokalemia; E88.09 Other disorders of plasma-protein metabolism, not elsewhere classified; E83.39 Other disorders of phosphorus metabolism; Z88.0 Allergy status to penicillin; Z79.899 Other long term (current) drug therapy; Z96.649 Presence of unspecified artificial hip joint; Z98.890 Other specified postprocedural states
CPT/HCPCS: 31500; 36415; 36556; 71045; 71046; 76770; 80048; 80053; 80069; 81050; 82550; 82947; 83036; 83516; 83520; 83735; 83880; 84100; 84156; 84550; 85014; 85018; 85025; 85610; 86037; 86038; 86334; 86335; 92950; 93005; 93010; 94002; 94760; 96374; 97110; 97162; 97165; 97530; 97535; 99285-25; A9270; C1751; G0378; J0461; J1265; J1630; J1815; J1940; J2060; J2250; J2371; J3010; J3475; J7030; J7040; P9047